=== PATIENT | female | born 1965 | race American Indian/Alaskan Native ===

== ENCOUNTER 2016-10-08 07:53 | Day surgery (SDC) | payer BC, OTHER ==
[2016-10-08] MEDS ORDERED: Propofol 10 mg/ml Inj (20 ML) ONE ×2 (09:29→09:41)
[2016-10-08] MEDS ORDERED: Midazolam 2 MG/2 ML VIAL ONE (09:29)
--- NOTE | 2016-10-08 09:29 | CP.SDSHP ---
Same Day Surgery H & P - History Proposed Procedure: colonoscopy Pre-Op Diagnosis: screening - Previous Medical/Surgical History Comments: lupus, sickle cell trait - Allergies Allergies: Allergies Penicillins Allergy (Verified 10/08/16 08:24) RASH - Physical Exam General Appearance: NAD Vital Signs: Vital Signs 10/08/16 08:10 Temperature 97.3 F L Pulse Rate 55 L Respiratory 19 Rate Blood Pressure 155/79 H O2 Sat by Pulse 99 Oximetry Mental Status: Alert & Oriented x3 Neuro: WNL Heart: WNL Lungs: WNL GI: WNL - {Optional Preform as Required} Abdomen: WNL - Impression Pt. Evaluated Today:Candidate for Anesthesia & Procedure: Yes - Date & Time Date: 10/08/16 Time: 09:28 Short Stay Discharge - Short Stay Discharge Admitting Diagnosis/Reason for Visit: SCREENING Disposition: HOME/ ROUTINE
[2016-10-08 10:10] VITALS: TEMP 97.1
[2016-10-08 12:24] VITALS: BP 162/88; PULSE 74; RESP 15; O2SAT 99
== END 2016-10-08 12:10 | disposition home or self-care (01) ==
LOC: C.ENDO 07:53
PROVIDERS: ATTEND Internal Medicine Gastroenterology
DX: Z12.11 Encounter for screening for malignant neoplasm of colon (principal); Z88.0 Allergy status to penicillin; K64.8 Other hemorrhoids; K57.30 Diverticulosis of large intestine without perforation or abscess without bleeding
CPT/HCPCS: 45378; 84703; J2250; J2704